=== PATIENT | female | born 1970 | race African-American/Black ===

== ENCOUNTER 2024-10-07 10:34 | Emergency (ER) | payer OTHER ==
--- OUTSIDE RECORDS SUMMARY | 2024-10-07 10:40 | XMS REPORT | Continuity of Care Document ---
Author Name Unknown Address [address] [facility] [place] [address] [facility] [place] Address [address] [facility] [place] [address] Care Team Providers Care Heel Attacher Name Role Phone Tammy Bird Primary Care Physician Shailesh Flores Attending Clinician Shailesh Kaplan Attending Clinician Shailesh Kaplan Admitting Clinician Shadi quiroz Payers Payer Name Policy Type Policy Number Effective Date Expirati on Date Source Allergies, Adverse Reactions, Alerts Allergy Name Allergy Type Status Severity Reaction(s) Onset Date Inactive Date Treating Clinician Comments Source No Known Allergie s Drug Active [facility] Medications Ordered Medication Name Filled Medication Name Start Date Stop Date Current Medication? Ordering Clinician Indication Dosage Frequency Signature (SIG) Comments Components Source ibuprofen 800 mg tablet 4-14 00:00: 00 Yes 1mg Travis Champagne amlodipine 10 mg tablet 2-12 00:00: 00 Yes 1mg Travis Champagne atorvastati n 10 mg tablet 2-12 00:00: 00 Yes 1mg Travis Champagne amlodipine 10 mg tablet 03-02 00:00: 00 Yes 1mg Travis Champagne clarithromy dago 500 mg tablet 03-02 00:00: 00 Yes 1mg Travis Champagne amoxicillin 500 mg tablet 03-02 00:00: 00 Yes 2mg Travis Champagne atorvastati n 10 mg tablet 03-02 00:00: 00 Yes 1mg Travis Champagne omeprazole 20 mg capsule,del ayed release 03-02 00:00: 00 Yes 1mg Travis Champagne bismuth subcit K 140 mg-metronid azole 125 mg-tetracyc line 125 mg cap 03-02 00:00: 00 Yes 3mg Travis Champagne bismuth subcit K 140 mg-metronid azole 125 mg-tetracyc line 125 mg cap 16 00:00: 00 Yes 3mg Travis Champagne atorvastati n 10 mg tablet 02-20 00:00: 00 Yes 1mg Travis Champagne omeprazole 20 mg capsule,del ayed release 02-20 00:00: 00 Yes 1mg Travis Champagne Pylera 140 mg-125 mg-125 mg capsule 02-20 00:00: 00 Yes 3mg Travis Champagne amlodipine 10 mg tablet 02-16 00:00: 00 Yes 1mg Travis Blandonfed DM 2 mg-30 mg-10 mg/5 mL oral syrup 02-16 00:00: 00 Yes 10mg/5 mL Travis Champagne APPLY TO AFFECTED AREAS AT THE MOST 4 TIMES A DAY 06-28 00:00: 00 Yes 1 Travis Champagne TAKE 1 TABLET 3 TIMES DAILY WITH FOOD NEEDED. 06-28 00:00: 00 Yes 800 Travis Champagne TAKE 1 TABLET DAILY. 06-28 00:00: 00 Yes 10 Travis Blandonfed DM 2 mg-30 mg-10 mg/5 mL oral syrup 2020-06 00:00: 00 Yes 75mg/5 mL Travis Champagne atorvastati n 10 mg tablet 10-16 00:00: 00 Yes 1mg Travis Champagne amlodipine 2.5 mg tablet 10-16 00:00: 00 Yes 1mg Travis Champagne diclofenac 1 % topical gel 2018-06 00:00: 00 Yes % Travis Champagne atorvastati n 10 mg tablet 2018-06 00:00: 00 Yes 1mg Travis Champagne amlodipine 2.5 mg tablet 2018-06 00:00: 00 Yes 1mg Travis Champagne amlodipine 2.5 mg tablet 01-04 00:00: 00 Yes 1mg Travis Champagne amlodipine 2.5 mg tablet 12-07 00:00: 00 Yes 1mg Travis Champagne amlodipine 2.5 mg tablet 09-07 00:00: 00 Yes 1mg Travis Champagne loratadine 10 mg tablet 09-07 00:00: 00 Yes 1mg Travis Champagne iron 325 mg (65 mg iron) tablet 09-07 00:00: 00 Yes 1(65 mg iron) Travis Champagne Vitamin B-12 1,000 mcg tablet 09-07 00:00: 00 Yes 1mcg Travis Champagne Immunizations Ordered Immunization Name Filled Immunization Name Date Status Comments Source Pam COVID-19 Vaccine Pam COVID-19 Vaccine 2021-01-08 00:00:00 Completed Travis Champagne Moderna COVID-19 Vaccine Moderna COVID-19 Vaccine 2020-12-09 00:00:00 Completed Travis Champagne Tdap Tdap 2017-09-07 00:00:00 Completed Travis Champagne Vital Signs Vital Name Observation Time Observation Value Comments S ourterra BP Systolic 2024-09-25 14:27:00 126 mm[Hg] Dillan hen Natalia Champagne BP Diastolic 2024-09-25 14:27:00 85 mm[Hg] Thong phen Natalia Champagne Weight Measured 2024-09-25 14:27:00 254.00 pounds Travis Champagne Height Measured 2024-09-25 14:27:00 63.00 inches Travis Champagen Body Temperature 2024-09-25 14:27:00 98.40 degrees Travis Champagne Heart Rate 2024-09-25 14:27:00 100.00 /min Dillan Champagne Respiratory Rate 2024-09-25 14:27:00 Travis Champagne BP Systolic 2024-07-26 14:06:00 176 mm[Hg] Step hen F Ihsan BP Diastolic 2024-07-26 14:06:00 112 mm[Hg] Thong phen Natalia Champagne Weight Measured 2024-07-26 14:06:00 249.60 pounds Travis Champagne Height Measured 2024-07-26 14:06:00 63.00 inches Travis Champagne Body Temperature 2024-07-26 14:06:00 98.70 degrees Travis F Ihsan Heart Rate 2024-07-26 14:06:00 92.00 /min Mallorie en F Ihsan Respiratory Rate 2024-07-26 14:06:00 18.00 /min Travis F Ihsan BP Systolic 2024-03-02 14:44:00 137 mm[Hg] Step hen F Ihsan BP Diastolic 2024-03-02 14:44:00 82 mm[Hg] Thong phen F Ihsan Weight Measured 2024-03-02 14:44:00 249.40 pounds Travis F Ihsan Height Measured 2024-03-02 14:44:00 63.00 inches Travis F Ihsan Body Temperature 2024-03-02 14:44:00 98.30 degrees Travis F Ihsan Heart Rate 2024-03-02 14:44:00 103.00 /min Step hen F Ihsan Respiratory Rate 2024-03-02 14:44:00 19.00 /min Travis F Ihsan Height Measured 2024-02-17 15:01:00 63.00 inches Travis F Ihsan Body Temperature 2024-02-17 15:01:00 98.30 degrees Travis F Ihsan Heart Rate 2024-02-17 15:01:00 96.00 /min Mallorie en F Ihsan Respiratory Rate 2024-02-17 15:01:00 Travis F Ihsan BP Systolic 2024-02-17 15:01:00 156 mm[Hg] Step hen F Ihsan BP Diastolic 2024-02-17 15:01:00 102 mm[Hg] Thong phen F Ihsan Weight Measured 2024-02-17 15:01:00 251.80 pounds Travis F Ihsan BP Systolic 2023-07-01 09:09:00 135 mm[Hg] Step hen F Ihsan BP Diastolic 2023-07-01 09:09:00 79 mm[Hg] Thong phen F Ihsan Weight Measured 2023-07-01 09:09:00 259.40 pounds Travis F Ihsan Height Measured 2023-07-01 09:09:00 63.00 inches Travis F Ihsan Body Temperature 2023-07-01 09:09:00 98.10 degrees Travis F Ihsan Heart Rate 2023-07-01 09:09:00 87.00 /min Mallorie en F Ihsan Respiratory Rate 2023-07-01 09:09:00 18.00 /min Travis F Ihsan BP Systolic 2023-06-28 13:54:00 172 mm[Hg] Step hen F Ihsan BP Diastolic 2023-06-28 13:54:00 95 mm[Hg] Thong phen F Ihsan Weight Measured 2023-06-28 13:54:00 259.40 pounds Travis F Ihsan Height Measured 2023-06-28 13:54:00 63.00 inches Travis F Ihsan Body Temperature 2023-06-28 13:54:00 97.80 degrees Travis F Ihsan Heart Rate 2023-06-28 13:54:00 90.00 /min Mallorie en F Ihsan Respiratory Rate 2023-06-28 13:54:00 18.00 /min Travis F Ihsan BP Systolic 2023-04-03 14:50:00 Step hen F Ihsan BP Diastolic 2023-04-03 14:50:00 Thong phen F Ihsan Weight Measured 2023-04-03 14:50:00 Travis F Ihsan Height Measured 2023-04-03 14:50:00 Travis F Ihsan Body Temperature 2023-04-03 14:50:00 Rtavis F Ihsan Heart Rate 2023-04-03 14:50:00 Mallorie en F Ihsan Respiratory Rate 2023-04-03 14:50:00 Travis F Ihsan BP Systolic 2019-11-23 15:24:00 122 mm[Hg] Step hen F Ihsan BP Diastolic 2019-11-23 15:24:00 83 mm[Hg] Thong phen F Ihsan Weight Measured 2019-11-23 15:24:00 237.00 pounds Travis F Ihsan Height Measured 2019-11-23 15:24:00 63.00 inches Travis F Ihsan Body Temperature 2019-11-23 15:24:00 98.70 degrees Travis F Ihsan Heart Rate 2019-11-23 15:24:00 96.00 /min Mallorie en F Ihsan Respiratory Rate 2019-11-23 15:24:00 16.00 /min Travis F Ihsan BP Systolic 2019-06-29 14:55:00 133 mm[Hg] Step hen F Ihsan BP Diastolic 2019-06-29 14:55:00 78 mm[Hg] Thong phen F Ihsan Weight Measured 2019-06-29 14:55:00 228.80 pounds Travis F Ihsan Height Measured 2019-06-29 14:55:00 63.00 inches Travis F Ihsan Body Temperature 2019-06-29 14:55:00 98.00 degrees Travis F Ihsan Heart Rate 2019-06-29 14:55:00 96.00 /min Mallorie en F Ihsan Respiratory Rate 2019-06-29 14:55:00 16.00 /min Travis F Ihsan BP Systolic 2019-04-21 14:44:00 155 mm[Hg] Step hen F Ihsan BP Diastolic 2019-04-21 14:44:00 98 mm[Hg] Thong phen F Ihsan Weight Measured 2019-04-21 14:44:00 224.00 pounds Travis F Ihsan Height Measured 2019-04-21 14:44:00 63.00 inches Travis F Ihsan Body Temperature 2019-04-21 14:44:00 98.80 degrees Travis F Ihsan Heart Rate 2019-04-21 14:44:00 90.00 /min Mallorie en F Ihsan Respiratory Rate 2019-04-21 14:44:00 17.00 /min Travis F Ihsan BP Systolic 2019-02-14 13:33:00 119 mm[Hg] Step hen F Ihsan BP Diastolic 2019-02-14 13:33:00 76 mm[Hg] Thong phen F Ihsan Weight Measured 2019-02-14 13:33:00 216.00 pounds Travis F Ihsan Height Measured 2019-02-14 13:33:00 63.00 inches Travis F Ihsan Body Temperature 2019-02-14 13:33:00 98.50 degrees Travis F Ihsan Heart Rate 2019-02-14 13:33:00 81.00 /min Amllorie en F Ihsan Respiratory Rate 2019-02-14 13:33:00 18.00 /min Travis F Ihsan BP Systolic 2018-12-27 11:04:00 129 mm[Hg] Step hen F Ihsan BP Diastolic 2018-12-27 11:04:00 85 mm[Hg] Thong phen F Ihsan Weight Measured 2018-12-27 11:04:00 218.40 pounds Travis F Ihsan Height Measured 2018-12-27 11:04:00 63.00 inches Travis F Ihsan Body Temperature 2018-12-27 11:04:00 97.80 degrees Travis F Ihsan Heart Rate 2018-12-27 11:04:00 70.00 /min Mallorie en F Ihsan Respiratory Rate 2018-12-27 11:04:00 16.00 /min Travis Champagne BP Systolic 2017-09-07 17:29:00 152 mm[Hg] Dillan Champagne BP Diastolic 2017-09-07 17:29:00 98 mm[Hg] Thong Champagne Weight Measured 2017-09-07 17:29:00 Travis Champagne Height Measured 2017-09-07 17:29:00 Travis Champagne Body Temperature 2017-09-07 17:29:00 Travis Champagne Heart Rate 2017-09-07 17:29:00 Mallorie Champagne Respiratory Rate 2017-09-07 17:29:00 Travis Champagne Encounters Start Date/Time End Date/Time Encounter Type Admission Type Attending [facility] Care Facility Care Department Encounter ID Source 2019-09-12 08:14:00 Inpatient Shailesh Flores Dom[facility] CRD [id number] [facility] 2024-09-25 14:20:39 2024-09-25 14:20:39 Outpatient [facility] [id number] Travis Champagne 2024-09-25 00:00:00 2024-09-25 00:00:00 Outpatient Visit [facility] [id number] Travis Champagne 2024-07-26 13:58:39 2024-07-26 13:58:39 Outpatient [facility] [id number] Travis Champagne 2024-07-26 00:00:00 2024-07-26 00:00:00 Outpatient Visit [facility] [id number] Travis Champagne 2024-03-02 14:40:06 2024-03-02 14:40:06 Outpatient [facility] [id number] Travis Champagne 2024-03-02 00:00:00 2024-03-02 00:00:00 Outpatient Visit [facility] [id number] Travis Champagne 2024-02-18 07:54:03 2024-02-18 07:54:03 Outpatient [facility] [id number] Travis Champagne 2024-02-17 14:55:12 2024-02-17 14:55:12 Outpatient [facility] [id number] Travis Champagne 2024-02-17 00:00:00 2024-02-17 00:00:00 Outpatient Visit [facility] [id number] Travis Champagne 2023-07-07 10:48:55 2023-07-07 10:48:55 Outpatient [facility] [id number] Travis Champagne 2023-07-01 09:01:29 2023-07-01 09:01:29 Outpatient [facility] [id number] Travis Champagne 2023-06-28 13:49:03 2023-06-28 13:49:03 Outpatient [facility] [id number] Travis Champagne Results Test Description Test Time Test Comments Results Result Co mments Source HEMOGLOBIN [id number] 00:00:00* Test Item Value Reference Range Interpretation Comme nts HEMOGLOBIN A1c (test code = 59486) 5.6 % Travis ChampagneHEMOGLOBIN [id number] 00:00:00* Test Item Value Reference Range Interpretation Comme nts HEMOGLOBIN A1c (test code = 33093) 5.6 % Travis ChampagneHEMOGLOBIN [id number] 00:00:00* Test Item Value Reference Range Interpretation Comme nts HEMOGLOBIN A1c (test code = 39235) 5.6 % Travis Fisher [place]. PYLORI (BREATH)2024-02-19 12:34:26* Test Item Value Reference Range Interpretation Comme nts H. PYLORI (BREATH) (test code = 22522) POSITIVE NEGATIVE A UNLESS OTHER GUAMAN INDICATED, ALL TESTING PERFORMED AT [facility] [address] [place] [id number] [employer] ADMINISTRATOR: MING GARNETT M.D. CLIA NUMBER [id number] [place]. [id number] CBC W/AUTO DIFF WITH [id number] 11:02:02* Test Item Value Reference Range Interpretation Comme nts WBC (test code = 1001) 5.4 K/UL 3.5-11.0 RBC (test code = 1002) 4.31 M/UL 3.80-5.40 HEMOGLOBIN (test code = 1003) 12.6 G/DL 11.5-15.5 HEMATOCRIT (test code = 1004) 40.2 % 34.0-45.0 MCV (test code = 1005) 93.3 fL 80.0-99.0 MCH (test code = 1006) 29.2 PG 25.0-33.0 MCHC (test code = 1007) 31.3 G/DL 31.0-36.0 RDW (test code = 1038) 16.7 % 11.5-15.0 H NEUTROPHILS (test code = 1008) 55.4 % LYMPHOCYTES (test code = 1010) 33.3 % MONOCYTES (test code = 1011) 8.3 % EOSINOPHILS (test code = 1012) 2.0 % BASOPHILS (test code = 1013) 0.6 % IMMATURE GRANULOCYTES (test code = 1036) 0.4 % NUCLEATED RBCS (test code = 1065) 0.0 /100 WBC'S See_Comment [Automated messa ge] The system which generated this result transmitted reference range: 0.0. The reference range was not used to interpret this result as normal/abnormal. PLATELET COUNT (test code = 1015) 318 K/UL 130-400 ABSOLUTE NEUTROPHILS (test code = 1066) 2.99 K/UL 1.50-7.50 ABSOLUTE LYMPHOCYTES (test code = 1067) 1.80 K/UL 1.00-4.00 ABSOLUTE MONOCYTES (test code = 1068) 0.45 K/UL 0.20-1.00 ABSOLUTE EOSINOPHILS (test code = 1040) 0.11 K/UL 0.00-0.50 ABSOLUTE BASOPHILS (test code = 1069) 0.03 K/UL 0.00-0.20 ABS IMMATURE GRANULOCYTES (test code = 1020) 0.02 K/UL 0.00-0.10 ABS NUCLEATED RBCS (test code = 17058) 0.00 K/UL 0.00-0.11 COMPREHENSIVE METABOLIC [id number] 05:51:58* Test Item Value Reference Range Interpretation Comme nts GLUCOSE (test code = 2217) 99 MG/DL 70-99 BUN (test code = 2208) 9 MG/DL 6-20 CREATININE (test code = 2214) 0.78 MG/DL 0.60-1.30 eGFR (2020 CKD-EPI) (test co de = 89423) 91 ML/MIN/1.73 >60 CALC BUN/CREAT (test code = 2234) 12 RATIO 6-28 SODIUM (test code = 223) 141 MEQ/L 133-146 POTASSIUM (test code = 8) 4.3 MEQ/L 3.5-5.4 CHLORIDE (test code = 2214) 105 MEQ/L 95-107 CARBON DIOXIDE (test code = 2206) 24 MEQ/L 19-31 CALCIUM (test code = 2208) 9.8 MG/DL 8.5-10.5 PROTEIN, TOTAL (test code = 2228) 6.8 G/DL 6.1-8.3 ALBUMIN (test code = 2200) 4.3 G/DL 3.5-5.2 CALC GLOBULIN (test code = 2240) 2.5 G/DL 1.9-3.7 CALC A/G RATIO (test code = 2233) 1.7 RATIO 1.0-2.6 BILIRUBIN, TOTAL (test code = 2206) 0.3 MG/DL <=1.2 ALKALINE PHOSPHATASE (test code = 2203) 85 U/L 40-133 AST (test code = 221) 24 U/L 9-40 ALT (test code = 2219) 20 U/L 5-40 LIPID [id number] 05:51:58* Test Item Value Reference Range Interpretation Comme nts CHOLESTEROL (test code = 2210) 219 MG/DL <200 H TRIGLYCERIDES (test code = 2232) 144 MG/DL <150 HDL CHOLESTEROL (test code = 2220) 52 MG/DL >39 CALC LDL CHOL (test code = 2237) 140 MG/DL <100 H NOTE: CALCULATED LDL IS BASED ON KAMRYN-MARTINEZ METHOD WHICHINCLUDES ADJUSTABLE TRIGLYCERIDE:VLDL CHOLESTEROL RATIO.THIS FACTOR VARIES BY MEASURED TRIGLYCERIDE AND NON-HDLCHOLESTEROL CONCENTRATIONS WITH INCREASED CALCULATED LDL SEENIN HIGHER TRIGLYCERIDE OR LOWER NON-HDL SPECIMENS. FOR MOREINFORMATION, SEE CLIENT ANNOUNCEMENT AT [email or web address] RISK RATIO LDL/HDL (test code = 2238) 2.69 RATIO <3.22 COMPREHENSIVE METABOLIC [id number] 00:00:00* Test Item Value Reference Range Interpretation Comme nts GLUCOSE (test code = 2217) 99 MG/DL BUN (test code = 2208) 9 MG/DL CREATININE (test code = 2214) 0.78 MG/DL eGFR (2020 CKD-EPI) (test co de = 38876) 91 ML/MIN/1.73 CALC BUN/CREAT (test code = 2235) 12 RATIO SODIUM (test code = 2231) 141 MEQ/L POTASSIUM (test code = 2228) 4.3 MEQ/L CHLORIDE (test code = 2215) 105 MEQ/L CARBON DIOXIDE (test code = 2206) 24 MEQ/L CALCIUM (test code = 2209) 9.8 MG/DL PROTEIN, TOTAL (test code = 2229) 6.8 G/DL ALBUMIN (test code = 2201) 4.3 G/DL CALC GLOBULIN (test code = 2240) 2.5 G/DL CALC A/G RATIO (test code = 2234) 1.7 RATIO BILIRUBIN, TOTAL (test code = 2207) 0.3 MG/DL ALKALINE PHOSPHATASE (test code = 2204) 85 U/L AST (test code = 2218) 24 U/L ALT (test code = 2219) 20 U/L Travis ChampagneH. PYLORI (BREATH)2024-02-19 00:00:00* Test Item Value Reference Range Interpretation Comme nts H. PYLORI (BREATH) (test cod e = 92777) POSITIVE Travis ChampagneLIPID [id number] 00:00:00* Test Item Value Reference Range Interpretation Comme nts CHOLESTEROL (test code = 2210) 219 MG/DL TRIGLYCERIDES (test code = 2232) 144 MG/DL HDL CHOLESTEROL (test code = 2220) 52 MG/DL CALC LDL CHOL (test code = 2237) 140 MG/DL RISK RATIO LDL/HDL (test cod e = 2238) 2.69 RATIO Travis ChampagneCBC W/AUTO [id number] 00:00:00* Test Item Value Reference Range Interpretation Comme nts WBC (test code = 1001) 5.4 K/UL RBC (test code = 1002) 4.31 M/UL HEMOGLOBIN (test code = 1003) 12.6 G/DL HEMATOCRIT (test code = 1004) 40.2 % MCV (test code = 1005) 93.3 fL MCH (test code = 1006) 29.2 PG MCHC (test code = 1007) 31.3 G/DL RDW (test code = 1038) 16.7 % NEUTROPHILS (test code = 1008) 55.4 % LYMPHOCYTES (test code = 1010) 33.3 % MONOCYTES (test code = 1011) 8.3 % EOSINOPHILS (test code = 1012) 2.0 % BASOPHILS (test code = 1013) 0.6 % IMMATURE GRANULOCYTES (test code = 1036) 0.4 % NUCLEATED RBCS (test code = 1065) 0.0 /100WBC'S PLATELET COUNT (test code = 1015) 318 K/UL ABSOLUTE NEUTROPHILS (test c ode = 1066) 2.99 K/UL ABSOLUTE LYMPHOCYTES (test c ode = 1067) 1.80 K/UL ABSOLUTE MONOCYTES (test cod e = 1068) 0.45 K/UL ABSOLUTE EOSINOPHILS (test c ode = 1040) 0.11 K/UL ABSOLUTE BASOPHILS (test cod e = 1069) 0.03 K/UL ABS IMMATURE GRANULOCYTES (t est code = 1020) 0.02 K/UL ABS NUCLEATED RBCS (test cod e = 69448) 0.00 K/UL Travis ChampagneH. PYLORI (BREATH)2024-02-19 00:00:00* Test Item Value Reference Range Interpretation Comme nts H. PYLORI (BREATH) (test cod e = 27487) POSITIVE Travis Fisher IhsanCOMPREHENSIVE METABOLIC [id number] 00:00:00* Test Item Value Reference Range Interpretation Comme nts GLUCOSE (test code = 2217) 99 MG/DL BUN (test code = 2208) 9 MG/DL CREATININE (test code = 2214) 0.78 MG/DL eGFR (2020 CKD-EPI) (test co de = 04487) 91 ML/MIN/1.73 CALC BUN/CREAT (test code = 2235) 12 RATIO SODIUM (test code = 2231) 141 MEQ/L POTASSIUM (test code = 2228) 4.3 MEQ/L CHLORIDE (test code = 2215) 105 MEQ/L CARBON DIOXIDE (test code = 2206) 24 MEQ/L CALCIUM (test code = 2209) 9.8 MG/DL PROTEIN, TOTAL (test code = 2229) 6.8 G/DL ALBUMIN (test code = 2201) 4.3 G/DL CALC GLOBULIN (test code = 2240) 2.5 G/DL CALC A/G RATIO (test code = 2234) 1.7 RATIO BILIRUBIN, TOTAL (test code = 2207) 0.3 MG/DL ALKALINE PHOSPHATASE (test code = 2204) 85 U/L AST (test code = 2218) 24 U/L ALT (test code = 2219) 20 U/L Travis ChampagneLIPID [id number] 00:00:00* Test Item Value Reference Range Interpretation Comme nts CHOLESTEROL (test code = 2210) 219 MG/DL TRIGLYCERIDES (test code = 2232) 144 MG/DL HDL CHOLESTEROL (test code = 2220) 52 MG/DL CALC LDL CHOL (test code = 2237) 140 MG/DL RISK RATIO LDL/HDL (test cod e = 2238) 2.69 RATIO Travis ChampagneCBC W/AUTO [id number] 00:00:00* Test Item Value Reference Range Interpretation Comme nts WBC (test code = 1001) 5.4 K/UL RBC (test code = 1002) 4.31 M/UL HEMOGLOBIN (test code = 1003) 12.6 G/DL HEMATOCRIT (test code = 1004) 40.2 % MCV (test code = 1005) 93.3 fL MCH (test code = 1006) 29.2 PG MCHC (test code = 1007) 31.3 G/DL RDW (test code = 1038) 16.7 % NEUTROPHILS (test code = 1008) 55.4 % LYMPHOCYTES (test code = 1010) 33.3 % MONOCYTES (test code = 1011) 8.3 % EOSINOPHILS (test code = 1012) 2.0 % BASOPHILS (test code = 1013) 0.6 % IMMATURE GRANULOCYTES (test code = 1036) 0.4 % NUCLEATED RBCS (test code = 1065) 0.0 /100WBC'S PLATELET COUNT (test code = 1015) 318 K/UL ABSOLUTE NEUTROPHILS (test c ode = 1066) 2.99 K/UL ABSOLUTE LYMPHOCYTES (test c ode = 1067) 1.80 K/UL ABSOLUTE MONOCYTES (test cod e = 1068) 0.45 K/UL ABSOLUTE EOSINOPHILS (test c ode = 1040) 0.11 K/UL ABSOLUTE BASOPHILS (test cod e = 1069) 0.03 K/UL ABS IMMATURE GRANULOCYTES (t est code = 1020) 0.02 K/UL ABS NUCLEATED RBCS (test cod e = 33791) 0.00 K/UL Travis ChampagneH. PYLORI (BREATH)2024-02-19 00:00:00* Test Item Value Reference Range Interpretation Comme nts H. PYLORI (BREATH) (test cod e = 09502) POSITIVE Travis ChampagneCOMPREHENSIVE METABOLIC [id number] 00:00:00* Test Item Value Reference Range Interpretation Comme nts GLUCOSE (test code = 2217) 99 MG/DL BUN (test code = 2208) 9 MG/DL CREATININE (test code = 2214) 0.78 MG/DL eGFR (2020 CKD-EPI) (test co de = 48685) 91 ML/MIN/1.73 CALC BUN/CREAT (test code = 2235) 12 RATIO SODIUM (test code = 2231) 141 MEQ/L POTASSIUM (test code = 2228) 4.3 MEQ/L CHLORIDE (test code = 2215) 105 MEQ/L CARBON DIOXIDE (test code = 2206) 24 MEQ/L CALCIUM (test code = 2209) 9.8 MG/DL PROTEIN, TOTAL (test code = 2229) 6.8 G/DL ALBUMIN (test code = 2201) 4.3 G/DL CALC GLOBULIN (test code = 2240) 2.5 G/DL CALC A/G RATIO (test code = 2234) 1.7 RATIO BILIRUBIN, TOTAL (test code = 2207) 0.3 MG/DL ALKALINE PHOSPHATASE (test code = 2204) 85 U/L AST (test code = 2218) 24 U/L ALT (test code = 2219) 20 U/L Travis ChampagneLIPID [id number] 00:00:00* Test Item Value Reference Range Interpretation Comme nts CHOLESTEROL (test code = 2210) 219 MG/DL TRIGLYCERIDES (test code = 2232) 144 MG/DL HDL CHOLESTEROL (test code = 2220) 52 MG/DL CALC LDL CHOL (test code = 2237) 140 MG/DL RISK RATIO LDL/HDL (test cod e = 2238) 2.69 RATIO Travis ChampagneCBC W/AUTO [id number] 00:00:00* Test Item Value Reference Range Interpretation Comme nts WBC (test code = 1001) 5.4 K/UL RBC (test code = 1002) 4.31 M/UL HEMOGLOBIN (test code = 1003) 12.6 G/DL HEMATOCRIT (test code = 1004) 40.2 % MCV (test code = 1005) 93.3 fL MCH (test code = 1006) 29.2 PG MCHC (test code = 1007) 31.3 G/DL RDW (test code = 1038) 16.7 % NEUTROPHILS (test code = 1008) 55.4 % LYMPHOCYTES (test code = 1010) 33.3 % MONOCYTES (test code = 1011) 8.3 % EOSINOPHILS (test code = 1012) 2.0 % BASOPHILS (test code = 1013) 0.6 % IMMATURE GRANULOCYTES (test code = 1036) 0.4 % NUCLEATED RBCS (test code = 1065) 0.0 /100WBC'S PLATELET COUNT (test code = 1015) 318 K/UL ABSOLUTE NEUTROPHILS (test c ode = 1066) 2.99 K/UL ABSOLUTE LYMPHOCYTES (test c ode = 1067) 1.80 K/UL ABSOLUTE MONOCYTES (test cod e = 1068) 0.45 K/UL ABSOLUTE EOSINOPHILS (test c ode = 1040) 0.11 K/UL ABSOLUTE BASOPHILS (test cod e = 1069) 0.03 K/UL ABS IMMATURE GRANULOCYTES (t est code = 1020) 0.02 K/UL ABS NUCLEATED RBCS (test cod e = 36994) 0.00 K/UL Travis Fisher AustinCOMPREHENSIVE METABOLIC [id number] 06:02:05* Test Item Value Reference Range Interpretation Comme nts GLUCOSE (test code = 2217) 91 MG/DL 70-99 BUN (test code = 2208) 15 MG/DL 6-20 CREATININE (test code = 2214) 0.74 MG/DL 0.60-1.30 eGFR (2020 CKD-EPI) (test co de = 11189) 97 ML/MIN/1.73 >60 CALC BUN/CREAT (test code = 2235) 20 RATIO 6-28 SODIUM (test code = 2231) 140 MEQ/L 133-146 POTASSIUM (test code = 2228) 4.5 MEQ/L 3.5-5.4 CHLORIDE (test code = 2215) 106 MEQ/L 95-107 CARBON DIOXIDE (test code = 2205) 21 MEQ/L 19-31 CALCIUM (test code = 2208) 9.8 MG/DL 8.5-10.5 PROTEIN, TOTAL (test code = 2228) 6.9 G/DL 6.1-8.3 ALBUMIN (test code = 2200) 4.3 G/DL 3.5-5.2 CALC GLOBULIN (test code = 2239) 2.6 G/DL 1.9-3.7 CALC A/G RATIO (test code = 2233) 1.7 RATIO 1.0-2.6 BILIRUBIN, TOTAL (test code = 2206) 0.4 MG/DL <=1.2 ALKALINE PHOSPHATASE (test code = 2203) 73 U/L 40-133 AST (test code = 2217) 19 U/L 9-40 ALT (test code = 2218) 16 U/L 5-40 HEMOGLOBIN [id number] 03:25:28* Test Item Value Reference Range Interpretation Comme nts HEMOGLOBIN A1c (test code = 19185) 5.4 % 4.2-5.6 CBC W/AUTO DIFF WITH [id number] 02:46:38* Test Item Value Reference Range Interpretation Comme nts WBC (test code = 1001) 4.2 K/UL 3.5-11.0 RBC (test code = 1002) 4.23 M/UL 3.80-5.40 HEMOGLOBIN (test code = 1003) 12.3 G/DL 11.5-15.5 HEMATOCRIT (test code = 1004) 38.1 % 34.0-45.0 MCV (test code = 1005) 90.1 fL 80.0-99.0 MCH (test code = 1006) 29.1 PG 25.0-33.0 MCHC (test code = 1007) 32.3 G/DL 31.0-36.0 RDW (test code = 1038) 14.5 % 11.5-15.0 NEUTROPHILS (test code = 1008) 45.3 % LYMPHOCYTES (test code = 1010) 38.2 % MONOCYTES (test code = 1011) 11.2 % EOSINOPHILS (test code = 1012) 3.6 % BASOPHILS (test code = 1013) 1.2 % IMMATURE GRANULOCYTES (test code = 1036) 0.5 % NUCLEATED RBCS (test code = 1065) 0.0 /100 WBC'S See_Comment [Automated message] The system which generated this result transmitted reference range: 0.0. The reference range was not used to interpret this result as normal/abnormal. PLATELET COUNT (test code = 1015) 302 K/UL 130-400 ABSOLUTE NEUTROPHILS (test code = 1066) 1.90 K/UL 1.50-7.50 ABSOLUTE LYMPHOCYTES (test code = 1067) 1.60 K/UL 1.00-4.00 ABSOLUTE MONOCYTES (test code = 1068) 0.47 K/UL 0.20-1.00 ABSOLUTE EOSINOPHILS (test code = 1040) 0.15 K/UL 0.00-0.50 ABSOLUTE BASOPHILS (test code = 1069) 0.05 K/UL 0.00-0.20 ABS IMMATURE GRANULOCYTES (test code = 1020) 0.02 K/UL 0.00-0.10 ABS NUCLEATED RBCS (test code = 24019) 0.00 K/UL 0.00-0.11 UNLESS OTHER GUAMAN INDICATED, ALL TESTING PERFORMED AT [facility]ICAL [facility] [address] [place] [address] [employer] ADMINISTRATOR: MING GARNETT M.D. CLIA NUMBER [id number] [facility] [place]. [id number] COMPREHENSIVE METABOLIC [id number] 00:00:00* Test Item Value Reference Range Interpretation Comme nts GLUCOSE (test code = 2217) 91 MG/DL BUN (test code = 2208) 15 MG/DL CREATININE (test code = 2214) 0.74 MG/DL eGFR (2020 CKD-EPI) (test co de = 87162) 97 ML/MIN/1.73 CALC BUN/CREAT (test code = 2235) 20 RATIO SODIUM (test code = 2231) 140 MEQ/L POTASSIUM (test code = 2228) 4.5 MEQ/L CHLORIDE (test code = 2215) 106 MEQ/L CARBON DIOXIDE (test code = 2206) 21 MEQ/L CALCIUM (test code = 2209) 9.8 MG/DL PROTEIN, TOTAL (test code = 2229) 6.9 G/DL ALBUMIN (test code = 2201) 4.3 G/DL CALC GLOBULIN (test code = 2240) 2.6 G/DL CALC A/G RATIO (test code = 2234) 1.7 RATIO BILIRUBIN, TOTAL (test code = 2207) 0.4 MG/DL ALKALINE PHOSPHATASE (test code = 2204) 73 U/L AST (test code = 2218) 19 U/L ALT (test code = 2219) 16 U/L Travis ChampagneHEMOGLOBIN [id number] 00:00:00* Test Item Value Reference Range Interpretation Comme nts HEMOGLOBIN A1c (test code = 84430) 5.4 % Travis ChampagneCBC W/AUTO [id number] 00:00:00* Test Item Value Reference Range Interpretation Comme nts WBC (test code = 1001) 4.2 K/UL RBC (test code = 1002) 4.23 M/UL HEMOGLOBIN (test code = 1003) 12.3 G/DL HEMATOCRIT (test code = 1004) 38.1 % MCV (test code = 1005) 90.1 fL MCH (test code = 1006) 29.1 PG MCHC (test code = 1007) 32.3 G/DL RDW (test code = 1038) 14.5 % NEUTROPHILS (test code = 1008) 45.3 % LYMPHOCYTES (test code = 1010) 38.2 % MONOCYTES (test code = 1011) 11.2 % EOSINOPHILS (test code = 1012) 3.6 % BASOPHILS (test code = 1013) 1.2 % IMMATURE GRANULOCYTES (test code = 1036) 0.5 % NUCLEATED RBCS (test code = 1065) 0.0 /100WBC'S PLATELET COUNT (test code = 1015) 302 K/UL ABSOLUTE NEUTROPHILS (test c ode = 1066) 1.90 K/UL ABSOLUTE LYMPHOCYTES (test c ode = 1067) 1.60 K/UL ABSOLUTE MONOCYTES (test cod e = 1068) 0.47 K/UL ABSOLUTE EOSINOPHILS (test c ode = 1040) 0.15 K/UL ABSOLUTE BASOPHILS (test cod e = 1069) 0.05 K/UL ABS IMMATURE GRANULOCYTES (t est code = 1020) 0.02 K/UL ABS NUCLEATED RBCS (test cod e = 04111) 0.00 K/UL Travis ChampagneCOMPREHENSIVE METABOLIC [id number] 00:00:00* Test Item Value Reference Range Interpretation Comme nts GLUCOSE (test code = 2217) 91 MG/DL BUN (test code = 2208) 15 MG/DL CREATININE (test code = 2214) 0.74 MG/DL eGFR (2020 CKD-EPI) (test co de = 50809) 97 ML/MIN/1.73 CALC BUN/CREAT (test code = 2235) 20 RATIO SODIUM (test code = 2231) 140 MEQ/L POTASSIUM (test code = 2228) 4.5 MEQ/L CHLORIDE (test code = 2215) 106 MEQ/L CARBON DIOXIDE (test code = 2206) 21 MEQ/L CALCIUM (test code = 2209) 9.8 MG/DL PROTEIN, TOTAL (test code = 2229) 6.9 G/DL ALBUMIN (test code = 2201) 4.3 G/DL CALC GLOBULIN (test code = 2240) 2.6 G/DL CALC A/G RATIO (test code = 2234) 1.7 RATIO BILIRUBIN, TOTAL (test code = 2207) 0.4 MG/DL ALKALINE PHOSPHATASE (test code = 2204) 73 U/L AST (test code = 2218) 19 U/L ALT (test code = 2219) 16 U/L Travis ChampagneHEMOGLOBIN [id number] 00:00:00* Test Item Value Reference Range Interpretation Comme nts HEMOGLOBIN A1c (test code = 46495) 5.4 % Travis ChampagneCBC W/AUTO [id number] 00:00:00* Test Item Value Reference Range Interpretation Comme nts WBC (test code = 1001) 4.2 K/UL RBC (test code = 1002) 4.23 M/UL HEMOGLOBIN (test code = 1003) 12.3 G/DL HEMATOCRIT (test code = 1004) 38.1 % MCV (test code = 1005) 90.1 fL MCH (test code = 1006) 29.1 PG MCHC (test code = 1007) 32.3 G/DL RDW (test code = 1038) 14.5 % NEUTROPHILS (test code = 1008) 45.3 % LYMPHOCYTES (test code = 1010) 38.2 % MONOCYTES (test code = 1011) 11.2 % EOSINOPHILS (test code = 1012) 3.6 % BASOPHILS (test code = 1013) 1.2 % IMMATURE GRANULOCYTES (test code = 1036) 0.5 % NUCLEATED RBCS (test code = 1065) 0.0 /100WBC'S PLATELET COUNT (test code = 1015) 302 K/UL ABSOLUTE NEUTROPHILS (test c ode = 1066) 1.90 K/UL ABSOLUTE LYMPHOCYTES (test c ode = 1067) 1.60 K/UL ABSOLUTE MONOCYTES (test cod e = 1068) 0.47 K/UL ABSOLUTE EOSINOPHILS (test c ode = 1040) 0.15 K/UL ABSOLUTE BASOPHILS (test cod e = 1069) 0.05 K/UL ABS IMMATURE GRANULOCYTES (t est code = 1020) 0.02 K/UL ABS NUCLEATED RBCS (test cod e = 51335) 0.00 K/UL Travis ChampagneCOMPREHENSIVE METABOLIC [id number] 00:00:00* Test Item Value Reference Range Interpretation Comme nts GLUCOSE (test code = 2217) 91 MG/DL BUN (test code = 2208) 15 MG/DL CREATININE (test code = 2214) 0.74 MG/DL eGFR (2020 CKD-EPI) (test co de = 61359) 97 ML/MIN/1.73 CALC BUN/CREAT (test code = 2235) 20 RATIO SODIUM (test code = 2231) 140 MEQ/L POTASSIUM (test code = 2228) 4.5 MEQ/L CHLORIDE (test code = 2215) 106 MEQ/L CARBON DIOXIDE (test code = 2206) 21 MEQ/L CALCIUM (test code = 2209) 9.8 MG/DL PROTEIN, TOTAL (test code = 2229) 6.9 G/DL ALBUMIN (test code = 2201) 4.3 G/DL CALC GLOBULIN (test code = 2240) 2.6 G/DL CALC A/G RATIO (test code = 2234) 1.7 RATIO BILIRUBIN, TOTAL (test code = 2207) 0.4 MG/DL ALKALINE PHOSPHATASE (test code = 2204) 73 U/L AST (test code = 2218) 19 U/L ALT (test code = 2219) 16 U/L Travis ChampagneHEMOGLOBIN [id number] 00:00:00* Test Item Value Reference Range Interpretation Comme nts HEMOGLOBIN A1c (test code = 08397) 5.4 % Travis Fisher IhsanCBC W/AUTO [id number] 00:00:00* Test Item Value Reference Range Interpretation Comme nts WBC (test code = 1001) 4.2 K/UL RBC (test code = 1002) 4.23 M/UL HEMOGLOBIN (test code = 1003) 12.3 G/DL HEMATOCRIT (test code = 1004) 38.1 % MCV (test code = 1005) 90.1 fL MCH (test code = 1006) 29.1 PG MCHC (test code = 1007) 32.3 G/DL RDW (test code = 1038) 14.5 % NEUTROPHILS (test code = 1008) 45.3 % LYMPHOCYTES (test code = 1010) 38.2 % MONOCYTES (test code = 1011) 11.2 % EOSINOPHILS (test code = 1012) 3.6 % BASOPHILS (test code = 1013) 1.2 % IMMATURE GRANULOCYTES (test code = 1036) 0.5 % NUCLEATED RBCS (test code = 1065) 0.0 /100WBC'S PLATELET COUNT (test code = 1015) 302 K/UL ABSOLUTE NEUTROPHILS (test c ode = 1066) 1.90 K/UL ABSOLUTE LYMPHOCYTES (test c ode = 1067) 1.60 K/UL ABSOLUTE MONOCYTES (test cod e = 1068) 0.47 K/UL ABSOLUTE EOSINOPHILS (test c ode = 1040) 0.15 K/UL ABSOLUTE BASOPHILS (test cod e = 1069) 0.05 K/UL ABS IMMATURE GRANULOCYTES (t est code = 1020) 0.02 K/UL ABS NUCLEATED RBCS (test cod e = 96644) 0.00 K/UL Travis Fisher AustinCOMPREHENSIVE METABOLIC [id number] 00:00:00* Test Item Value Reference Range Interpretation Comme nts GLUCOSE (test code = 2217) 91 MG/DL BUN (test code = 2208) 15 MG/DL CREATININE (test code = 2214) 0.74 MG/DL eGFR (2020 CKD-EPI) (test co de = 18808) 97 ML/MIN/1.73 CALC BUN/CREAT (test code = 2235) 20 RATIO SODIUM (test code = 2231) 140 MEQ/L POTASSIUM (test code = 2228) 4.5 MEQ/L CHLORIDE (test code = 2215) 106 MEQ/L CARBON DIOXIDE (test code = 2206) 21 MEQ/L CALCIUM (test code = 2209) 9.8 MG/DL PROTEIN, TOTAL (test code = 2229) 6.9 G/DL ALBUMIN (test code = 2201) 4.3 G/DL CALC GLOBULIN (test code = 2240) 2.6 G/DL CALC A/G RATIO (test code = 2234) 1.7 RATIO BILIRUBIN, TOTAL (test code = 2207) 0.4 MG/DL ALKALINE PHOSPHATASE (test code = 2204) 73 U/L AST (test code = 2218) 19 U/L ALT (test code = 2219) 16 U/L Travis ChampagneHEMOGLOBIN [id number] 00:00:00* Test Item Value Reference Range Interpretation Comme nts HEMOGLOBIN A1c (test code = 43530) 5.4 % Travis ChampagneCBC W/AUTO [id number] 00:00:00* Test Item Value Reference Range Interpretation Comme nts WBC (test code = 1001) 4.2 K/UL RBC (test code = 1002) 4.23 M/UL HEMOGLOBIN (test code = 1003) 12.3 G/DL HEMATOCRIT (test code = 1004) 38.1 % MCV (test code = 1005) 90.1 fL MCH (test code = 1006) 29.1 PG MCHC (test code = 1007) 32.3 G/DL RDW (test code = 1038) 14.5 % NEUTROPHILS (test code = 1008) 45.3 % LYMPHOCYTES (test code = 1010) 38.2 % MONOCYTES (test code = 1011) 11.2 % EOSINOPHILS (test code = 1012) 3.6 % BASOPHILS (test code = 1013) 1.2 % IMMATURE GRANULOCYTES (test code = 1036) 0.5 % NUCLEATED RBCS (test code = 1065) 0.0 /100WBC'S PLATELET COUNT (test code = 1015) 302 K/UL ABSOLUTE NEUTROPHILS (test c ode = 1066) 1.90 K/UL ABSOLUTE LYMPHOCYTES (test c ode = 1067) 1.60 K/UL ABSOLUTE MONOCYTES (test cod e = 1068) 0.47 K/UL ABSOLUTE EOSINOPHILS (test c ode = 1040) 0.15 K/UL ABSOLUTE BASOPHILS (test cod e = 1069) 0.05 K/UL ABS IMMATURE GRANULOCYTES (t est code = 1020) 0.02 K/UL ABS NUCLEATED RBCS (test cod e = 80388) 0.00 K/UL Travis ChampagneLIPID [id number] 00:00:00* Test Item Value Reference Range Interpretation Comme nts CHOLESTEROL (test code = 2210) 166 MG/DL TRIGLYCERIDES (test code = 2232) 51 MG/DL HDL CHOLESTEROL (test code = 2220) 76 MG/DL CALC LDL CHOL (test code = 2237) 80 MG/DL RISK RATIO LDL/HDL (test cod e = 2238) 1.05 RATIO Travis ChampagneCBC W/AUTO [id number] 00:00:00* Test Item Value Reference Range Interpretation Comme nts WBC (test code = 1001) 5.1 K/UL RBC (test code = 1002) 3.91 M/UL HEMOGLOBIN (test code = 1003) 10.6 G/DL HEMATOCRIT (test code = 1004) 33.1 % MCV (test code = 1005) 84.7 fL MCH (test code = 1006) 27.1 PG MCHC (test code = 1007) 32.0 G/DL RDW (test code = 1038) 15.3 % NEUTROPHILS (test code = 1008) 39.7 % LYMPHOCYTES (test code = 1010) 44.8 % MONOCYTES (test code = 1011) 10.2 % EOSINOPHILS (test code = 1012) 4.3 % BASOPHILS (test code = 1013) 1.0 % PLATELET COUNT (test code = 1015) 379 K/UL Travis ChampagneLIPID [id number] 00:00:00* Test Item Value Reference Range Interpretation Comme nts CHOLESTEROL (test code = 2210) 166 MG/DL TRIGLYCERIDES (test code = 2232) 51 MG/DL HDL CHOLESTEROL (test code = 2220) 76 MG/DL CALC LDL CHOL (test code = 2237) 80 MG/DL RISK RATIO LDL/HDL (test cod e = 2238) 1.05 RATIO Travis ChampagneCBC W/AUTO [id number] 00:00:00* Test Item Value Reference Range Interpretation Comme nts WBC (test code = 1001) 5.1 K/UL RBC (test code = 1002) 3.91 M/UL HEMOGLOBIN (test code = 1003) 10.6 G/DL HEMATOCRIT (test code = 1004) 33.1 % MCV (test code = 1005) 84.7 fL MCH (test code = 1006) 27.1 PG MCHC (test code = 1007) 32.0 G/DL RDW (test code = 1038) 15.3 % NEUTROPHILS (test code = 1008) 39.7 % LYMPHOCYTES (test code = 1010) 44.8 % MONOCYTES (test code = 1011) 10.2 % EOSINOPHILS (test code = 1012) 4.3 % BASOPHILS (test code = 1013) 1.0 % PLATELET COUNT (test code = 1015) 379 K/UL Travis Fisher AustinLIPID [id number] 00:00:00* Test Item Value Reference Range Interpretation Comme nts CHOLESTEROL (test code = 2210) 166 MG/DL TRIGLYCERIDES (test code = 2232) 51 MG/DL HDL CHOLESTEROL (test code = 2220) 76 MG/DL CALC LDL CHOL (test code = 2237) 80 MG/DL RISK RATIO LDL/HDL (test cod e = 2238) 1.05 RATIO Travis ChampagneCBC W/AUTO [id number] 00:00:00* Test Item Value Reference Range Interpretation Comme nts WBC (test code = 1001) 5.1 K/UL RBC (test code = 1002) 3.91 M/UL HEMOGLOBIN (test code = 1003) 10.6 G/DL HEMATOCRIT (test code = 1004) 33.1 % MCV (test code = 1005) 84.7 fL MCH (test code = 1006) 27.1 PG MCHC (test code = 1007) 32.0 G/DL RDW (test code = 1038) 15.3 % NEUTROPHILS (test code = 1008) 39.7 % LYMPHOCYTES (test code = 1010) 44.8 % MONOCYTES (test code = 1011) 10.2 % EOSINOPHILS (test code = 1012) 4.3 % BASOPHILS (test code = 1013) 1.0 % PLATELET COUNT (test code = 1015) 379 K/UL Travis Fisher AustinLIPID [id number] 00:00:00* Test Item Value Reference Range Interpretation Comme nts CHOLESTEROL (test code = 2210) 166 MG/DL TRIGLYCERIDES (test code = 2232) 51 MG/DL HDL CHOLESTEROL (test code = 2220) 76 MG/DL CALC LDL CHOL (test code = 2237) 80 MG/DL RISK RATIO LDL/HDL (test cod e = 2238) 1.05 RATIO Travis ChampagneCBC W/AUTO [id number] 00:00:00* Test Item Value Reference Range Interpretation Comme nts WBC (test code = 1001) 5.1 K/UL RBC (test code = 1002) 3.91 M/UL HEMOGLOBIN (test code = 1003) 10.6 G/DL HEMATOCRIT (test code = 1004) 33.1 % MCV (test code = 1005) 84.7 fL MCH (test code = 1006) 27.1 PG MCHC (test code = 1007) 32.0 G/DL RDW (test code = 1038) 15.3 % NEUTROPHILS (test code = 1008) 39.7 % LYMPHOCYTES (test code = 1010) 44.8 % MONOCYTES (test code = 1011) 10.2 % EOSINOPHILS (test code = 1012) 4.3 % BASOPHILS (test code = 1013) 1.0 % PLATELET COUNT (test code = 1015) 379 K/UL Travis [id number] 00:00:00* Test Item Value Reference Range Interpretation Comme nts TSH, THIRD GENERATION (test code = 2821) 0.770 UIU/ML Travis ChampagneCOMPREHENSIVE METABOLIC [id number] 00:00:00* Test Item Value Reference Range Interpretation Comme nts GLUCOSE (test code = 2217) 89 MG/DL BUN (test code = 2208) 13 MG/DL CREATININE (test code = 2214) 0.75 MG/DL eGFR AMER. (test cod e = 44438) 109 ML/MIN/1.73 eGFR NON- AMER. (test code = 87944) 94 ML/MIN/1.73 CALC BUN/CREAT (test code = 2235) 17 RATIO SODIUM (test code = 2231) 142 MEQ/L POTASSIUM (test code = 2228) 4.4 MEQ/L CHLORIDE (test code = 2215) 107 MEQ/L CARBON DIOXIDE (test code = 2206) 21 MEQ/L CALCIUM (test code = 2209) 9.7 MG/DL PROTEIN, TOTAL (test code = 2229) 7.6 G/DL ALBUMIN (test code = 2201) 4.6 G/DL CALC GLOBULIN (test code = 2240) 3.0 G/DL CALC A/G RATIO (test code = 2234) 1.5 RATIO BILIRUBIN, TOTAL (test code = 2207) 0.3 MG/DL ALKALINE PHOSPHATASE (test code = 2204) 64 U/L AST (test code = 2218) 18 U/L ALT (test code = 2219) 8 U/L Travis ChampagneLIPID [id number] 00:00:00* Test Item Value Reference Range Interpretation Comme nts CHOLESTEROL (test code = 2210) 219 MG/DL TRIGLYCERIDES (test code = 2232) 90 MG/DL HDL CHOLESTEROL (test code = 2220) 68 MG/DL CALC LDL CHOL (test code = 2237) 133 MG/DL RISK RATIO LDL/HDL (test cod e = 2238) 1.96 RATIO Travis ChampagneCBC W/AUTO [id number] 00:00:00* Test Item Value Reference Range Interpretation Comme nts WBC (test code = 1001) 6.0 K/UL RBC (test code = 1002) 4.22 M/UL HEMOGLOBIN (test code = 1003) 11.0 G/DL HEMATOCRIT (test code = 1004) 34.5 % MCV (test code = 1005) 81.8 fL MCH (test code = 1006) 26.1 PG MCHC (test code = 1007) 31.9 G/DL RDW (test code = 1038) 15.4 % NEUTROPHILS (test code = 1008) 45.5 % LYMPHOCYTES (test code = 1010) 43.8 % MONOCYTES (test code = 1011) 7.7 % EOSINOPHILS (test code = 1012) 1.8 % BASOPHILS (test code = 1013) 1.2 % PLATELET COUNT (test code = 1015) 369 K/UL Travis ChampagneHEMOGLOBIN [id number] 00:00:00* Test Item Value Reference Range Interpretation Comme kwame HEMOGLOBIN A1c (test code = 19286) 5.3 % Travis [id number] 00:00:00* Test Item Value Reference Range Interpretation Comme kwame TSH, THIRD GENERATION (test code = 2821) 0.770 UIU/ML Travis ChampagneCOMPREHENSIVE METABOLIC [id number] 00:00:00* Test Item Value Reference Range Interpretation Comme nts GLUCOSE (test code = 2217) 89 MG/DL BUN (test code = 2208) 13 MG/DL CREATININE (test code = 2214) 0.75 MG/DL eGFR AMER. (test cod e = ) 109 ML/MIN/1.73 eGFR NON- AMER. (test code = 52104) 94 ML/MIN/1.73 CALC BUN/CREAT (test code = 2235) 17 RATIO SODIUM (test code = 2231) 142 MEQ/L POTASSIUM (test code = 2228) 4.4 MEQ/L CHLORIDE (test code = 2215) 107 MEQ/L CARBON DIOXIDE (test code = 2206) 21 MEQ/L CALCIUM (test code = 2209) 9.7 MG/DL PROTEIN, TOTAL (test code = 222) 7.6 G/DL ALBUMIN (test code = 2201) 4.6 G/DL CALC GLOBULIN (test code = 2240) 3.0 G/DL CALC A/G RATIO (test code = 2234) 1.5 RATIO BILIRUBIN, TOTAL (test code = 2207) 0.3 MG/DL ALKALINE PHOSPHATASE (test code = 2204) 64 U/L AST (test code = 2218) 18 U/L ALT (test code = 2219) 8 U/L Travis ChampagneLIPID [id number] 00:00:00* Test Item Value Reference Range Interpretation Comme nts CHOLESTEROL (test code = 2210) 219 MG/DL TRIGLYCERIDES (test code = 2232) 90 MG/DL HDL CHOLESTEROL (test code = 2220) 68 MG/DL CALC LDL CHOL (test code = 2237) 133 MG/DL RISK RATIO LDL/HDL (test cod e = 2238) 1.96 RATIO Travis ChapmagneCBC W/AUTO [id number] 00:00:00* Test Item Value Reference Range Interpretation Comme nts WBC (test code = 1001) 6.0 K/UL RBC (test code = 1002) 4.22 M/UL HEMOGLOBIN (test code = 1003) 11.0 G/DL HEMATOCRIT (test code = 1004) 34.5 % MCV (test code = 1005) 81.8 fL MCH (test code = 1006) 26.1 PG MCHC (test code = 1007) 31.9 G/DL RDW (test code = 1038) 15.4 % NEUTROPHILS (test code = 1008) 45.5 % LYMPHOCYTES (test code = 1010) 43.8 % MONOCYTES (test code = 1011) 7.7 % EOSINOPHILS (test code = 1012) 1.8 % BASOPHILS (test code = 1013) 1.2 % PLATELET COUNT (test code = 1015) 369 K/UL Travis ChampagneHEMOGLOBIN [id number] 00:00:00* Test Item Value Reference Range Interpretation Comme nts HEMOGLOBIN A1c (test code = 97927) 5.3 % Travis [id number] 00:00:00* Test Item Value Reference Range Interpretation Comme nts TSH, THIRD GENERATION (test code = 2821) 0.770 UIU/ML Travis ChampagneCOMPREHENSIVE METABOLIC [id number] 00:00:00* Test Item Value Reference Range Interpretation Comme nts GLUCOSE (test code = 2217) 89 MG/DL BUN (test code = 2208) 13 MG/DL CREATININE (test code = 2214) 0.75 MG/DL eGFR AMER. (test cod e = 03031) 109 ML/MIN/1.73 eGFR NON- AMER. (test code = 60899) 94 ML/MIN/1.73 CALC BUN/CREAT (test code = 2235) 17 RATIO SODIUM (test code = 2231) 142 MEQ/L POTASSIUM (test code = 2228) 4.4 MEQ/L CHLORIDE (test code = 2215) 107 MEQ/L CARBON DIOXIDE (test code = 2206) 21 MEQ/L CALCIUM (test code = 2209) 9.7 MG/DL PROTEIN, TOTAL (test code = 2229) 7.6 G/DL ALBUMIN (test code = 2201) 4.6 G/DL CALC GLOBULIN (test code = 2240) 3.0 G/DL CALC A/G RATIO (test code = 2234) 1.5 RATIO BILIRUBIN, TOTAL (test code = 2207) 0.3 MG/DL ALKALINE PHOSPHATASE (test code = 2204) 64 U/L AST (test code = 2218) 18 U/L ALT (test code = 2219) 8 U/L Travis ChampagneLIPID [id number] 00:00:00* Test Item Value Reference Range Interpretation Comme nts CHOLESTEROL (test code = 2210) 219 MG/DL TRIGLYCERIDES (test code = 2232) 90 MG/DL HDL CHOLESTEROL (test code = 2220) 68 MG/DL CALC LDL CHOL (test code = 2237) 133 MG/DL RISK RATIO LDL/HDL (test cod e = 2238) 1.96 RATIO Travis ChampagneCBC W/AUTO [id number] 00:00:00* Test Item Value Reference Range Interpretation Comme nts WBC (test code = 1001) 6.0 K/UL RBC (test code = 1002) 4.22 M/UL HEMOGLOBIN (test code = 1003) 11.0 G/DL HEMATOCRIT (test code = 1004) 34.5 % MCV (test code = 1005) 81.8 fL MCH (test code = 1006) 26.1 PG MCHC (test code = 1007) 31.9 G/DL RDW (test code = 1038) 15.4 % NEUTROPHILS (test code = 1008) 45.5 % LYMPHOCYTES (test code = 1010) 43.8 % MONOCYTES (test code = 1011) 7.7 % EOSINOPHILS (test code = 1012) 1.8 % BASOPHILS (test code = 1013) 1.2 % PLATELET COUNT (test code = 1015) 369 K/UL Travis ChampagneHEMOGLOBIN [id number] 00:00:00* Test Item Value Reference Range Interpretation Comme kwame HEMOGLOBIN A1c (test code = 37032) 5.3 % Travis [id number] 00:00:00* Test Item Value Reference Range Interpretation Comme kwame TSH, THIRD GENERATION (test code = 2821) 0.770 UIU/ML Travis ChampagneCOMPREHENSIVE METABOLIC [id number] 00:00:00* Test Item Value Reference Range Interpretation Comme nts GLUCOSE (test code = 2217) 89 MG/DL BUN (test code = 2208) 13 MG/DL CREATININE (test code = 2214) 0.75 MG/DL eGFR AMER. (test cod e = 36032) 109 ML/MIN/1.73 eGFR NON- AMER. (test code = 79080) 94 ML/MIN/1.73 CALC BUN/CREAT (test code = 2235) 17 RATIO SODIUM (test code = 2231) 142 MEQ/L POTASSIUM (test code = 2228) 4.4 MEQ/L CHLORIDE (test code = 2215) 107 MEQ/L CARBON DIOXIDE (test code = 2206) 21 MEQ/L CALCIUM (test code = 2209) 9.7 MG/DL PROTEIN, TOTAL (test code = 2229) 7.6 G/DL ALBUMIN (test code = 2201) 4.6 G/DL CALC GLOBULIN (test code = 2240) 3.0 G/DL CALC A/G RATIO (test code = 2234) 1.5 RATIO BILIRUBIN, TOTAL (test code = 2207) 0.3 MG/DL ALKALINE PHOSPHATASE (test code = 2204) 64 U/L AST (test code = 2218) 18 U/L ALT (test code = 2219) 8 U/L Travis ChampagneLIPID [id number] 00:00:00* Test Item Value Reference Range Interpretation Comme nts CHOLESTEROL (test code = 2210) 219 MG/DL TRIGLYCERIDES (test code = 2232) 90 MG/DL HDL CHOLESTEROL (test code = 2220) 68 MG/DL CALC LDL CHOL (test code = 2237) 133 MG/DL RISK RATIO LDL/HDL (test cod e = 2238) 1.96 RATIO Travis Fisher IhsanCBC W/AUTO [id number] 00:00:00* Test Item Value Reference Range Interpretation Comme nts WBC (test code = 1001) 6.0 K/UL RBC (test code = 1002) 4.22 M/UL HEMOGLOBIN (test code = 1003) 11.0 G/DL HEMATOCRIT (test code = 1004) 34.5 % MCV (test code = 1005) 81.8 fL MCH (test code = 1006) 26.1 PG MCHC (test code = 1007) 31.9 G/DL RDW (test code = 1038) 15.4 % NEUTROPHILS (test code = 1008) 45.5 % LYMPHOCYTES (test code = 1010) 43.8 % MONOCYTES (test code = 1011) 7.7 % EOSINOPHILS (test code = 1012) 1.8 % BASOPHILS (test code = 1013) 1.2 % PLATELET COUNT (test code = 1015) 369 K/UL Travis ChampagneHEMOGLOBIN [id number] 00:00:00* Test Item Value Reference Range Interpretation Comme [facility] HEMOGLOBIN A1c (test code = 13043) 5.3 % Travis ChampagneCOMPREHENSIVE METABOLIC [id number] 00:00:00* Test Item Value Reference Range Interpretation Comme nts GLUCOSE (test code = 2217) 86 MG/DL BUN (test code = 2208) 6 MG/DL CREATININE (test code = 2214) 0.72 MG/DL eGFR AMER. (test cod e = 34590) 116 ML/MIN/1.73 eGFR NON- AMER. (test code = 88355) 100 ML/MIN/1.73 CALC BUN/CREAT (test code = 2235) 8 RATIO SODIUM (test code = 2231) 141 MEQ/L POTASSIUM (test code = 2228) 4.1 MEQ/L CHLORIDE (test code = 2215) 105 MEQ/L CARBON DIOXIDE (test code = 2206) 23 MEQ/L CALCIUM (test code = 2209) 9.0 MG/DL PROTEIN, TOTAL (test code = 2229) 6.6 G/DL ALBUMIN (test code = 2201) 4.2 G/DL CALC GLOBULIN (test code = 2240) 2.4 G/DL CALC A/G RATIO (test code = 2234) 1.8 RATIO BILIRUBIN, TOTAL (test code = 2207) 0.2 MG/DL ALKALINE PHOSPHATASE (test code = 2204) 68 U/L AST (test code = 2218) 19 U/L ALT (test code = 2219) 10 U/L Travis ChampagneC W/AUTO [id number] 00:00:00* Test Item Value Reference Range Interpretation Comme nts WBC (test code = 1001) 4.7 K/UL RBC (test code = 1002) 4.14 M/UL HEMOGLOBIN (test code = 1003) 13.4 G/DL HEMATOCRIT (test code = 1004) 38.5 % MCV (test code = 1005) 93.0 fL MCH (test code = 1006) 32.4 PG MCHC (test code = 1007) 34.8 G/DL RDW (test code = 1038) 13.2 % NEUTROPHILS (test code = 1008) 29.5 % LYMPHOCYTES (test code = 1010) 58.9 % MONOCYTES (test code = 1011) 8.0 % EOSINOPHILS (test code = 1012) 1.9 % BASOPHILS (test code = 1013) 1.7 % PLATELET COUNT (test code = 1015) 290 K/UL Travis ChampagneHEMOGLOBIN [id number] 00:00:00* Test Item Value Reference Range Interpretation Comme [facility] HEMOGLOBIN A1c (test code = 45164) 5.0 % Travis ChampagneCOMPREHENSIVE METABOLIC [id number] 00:00:00* Test Item Value Reference Range Interpretation Comme nts GLUCOSE (test code = 2217) 86 MG/DL BUN (test code = 2208) 6 MG/DL CREATININE (test code = 2214) 0.72 MG/DL eGFR AMER. (test cod e = 04032) 116 ML/MIN/1.73 eGFR NON- AMER. (test code = 40096) 100 ML/MIN/1.73 CALC BUN/CREAT (test code = 2235) 8 RATIO SODIUM (test code = 2231) 141 MEQ/L POTASSIUM (test code = 2228) 4.1 MEQ/L CHLORIDE (test code = 2215) 105 MEQ/L CARBON DIOXIDE (test code = 2206) 23 MEQ/L CALCIUM (test code = 2209) 9.0 MG/DL PROTEIN, TOTAL (test code = 2229) 6.6 G/DL ALBUMIN (test code = 2201) 4.2 G/DL CALC GLOBULIN (test code = 2240) 2.4 G/DL CALC A/G RATIO (test code = 2234) 1.8 RATIO BILIRUBIN, TOTAL (test code = 2207) 0.2 MG/DL ALKALINE PHOSPHATASE (test code = 2204) 68 U/L AST (test code = 2218) 19 U/L ALT (test code = 2219) 10 U/L Travis ChampagneCBC W/AUTO [id number] 00:00:00* Test Item Value Reference Range Interpretation Comme kwame WBC (test code = 1001) 4.7 K/UL RBC (test code = 1002) 4.14 M/UL HEMOGLOBIN (test code = 1003) 13.4 G/DL HEMATOCRIT (test code = 1004) 38.5 % MCV (test code = 1005) 93.0 fL MCH (test code = 1006) 32.4 PG MCHC (test code = 1007) 34.8 G/DL RDW (test code = 1038) 13.2 % NEUTROPHILS (test code = 1008) 29.5 % LYMPHOCYTES (test code = 1010) 58.9 % MONOCYTES (test code = 1011) 8.0 % EOSINOPHILS (test code = 1012) 1.9 % BASOPHILS (test code = 1013) 1.7 % PLATELET COUNT (test code = 1015) 290 K/UL Travis ChampagneHEMOGLOBIN [id number] 00:00:00* Test Item Value Reference Range Interpretation Comme nts HEMOGLOBIN A1c (test code = 42201) 5.0 % Travis ChampagneCOMPREHENSIVE METABOLIC [id number] 00:00:00* Test Item Value Reference Range Interpretation Comme nts GLUCOSE (test code = 2217) 86 MG/DL BUN (test code = 2208) 6 MG/DL CREATININE (test code = 2214) 0.72 MG/DL eGFR AMER. (test cod e = 41349) 116 ML/MIN/1.73 eGFR NON- AMER. (test code = 24989) 100 ML/MIN/1.73 CALC BUN/CREAT (test code = 2235) 8 RATIO SODIUM (test code = 2231) 141 MEQ/L POTASSIUM (test code = 2228) 4.1 MEQ/L CHLORIDE (test code = 2215) 105 MEQ/L CARBON DIOXIDE (test code = 2206) 23 MEQ/L CALCIUM (test code = 2209) 9.0 MG/DL PROTEIN, TOTAL (test code = 2229) 6.6 G/DL ALBUMIN (test code = 2201) 4.2 G/DL CALC GLOBULIN (test code = 2240) 2.4 G/DL CALC A/G RATIO (test code = 2234) 1.8 RATIO BILIRUBIN, TOTAL (test code = 2207) 0.2 MG/DL ALKALINE PHOSPHATASE (test code = 2204) 68 U/L AST (test code = 2218) 19 U/L ALT (test code = 2219) 10 U/L Travis ChampagneCBC W/AUTO [id number] 00:00:00* Test Item Value Reference Range Interpretation Comme nts WBC (test code = 1001) 4.7 K/UL RBC (test code = 1002) 4.14 M/UL HEMOGLOBIN (test code = 1003) 13.4 G/DL HEMATOCRIT (test code = 1004) 38.5 % MCV (test code = 1005) 93.0 fL MCH (test code = 1006) 32.4 PG MCHC (test code = 1007) 34.8 G/DL RDW (test code = 1038) 13.2 % NEUTROPHILS (test code = 1008) 29.5 % LYMPHOCYTES (test code = 1010) 58.9 % MONOCYTES (test code = 1011) 8.0 % EOSINOPHILS (test code = 1012) 1.9 % BASOPHILS (test code = 1013) 1.7 % PLATELET COUNT (test code = 1015) 290 K/UL Travis ChampagneHEMOGLOBIN [id number] 00:00:00* Test Item Value Reference Range Interpretation Comme nts HEMOGLOBIN A1c (test code = 80152) 5.0 % Travis ChampagneCOMPREHENSIVE METABOLIC [id number] 00:00:00* Test Item Value Reference Range Interpretation Comme nts GLUCOSE (test code = 2217) 86 MG/DL BUN (test code = 2208) 6 MG/DL CREATININE (test code = 2214) 0.72 MG/DL eGFR AMER. (test cod e = 00581) 116 ML/MIN/1.73 eGFR NON- AMER. (test code = 86366) 100 ML/MIN/1.73 CALC BUN/CREAT (test code = 2235) 8 RATIO SODIUM (test code = 2231) 141 MEQ/L POTASSIUM (test code = 2228) 4.1 MEQ/L CHLORIDE (test code = 2215) 105 MEQ/L CARBON DIOXIDE (test code = 2206) 23 MEQ/L CALCIUM (test code = 2209) 9.0 MG/DL PROTEIN, TOTAL (test code = 2229) 6.6 G/DL ALBUMIN (test code = 2201) 4.2 G/DL CALC GLOBULIN (test code = 2240) 2.4 G/DL CALC A/G RATIO (test code = 2234) 1.8 RATIO BILIRUBIN, TOTAL (test code = 2207) 0.2 MG/DL ALKALINE PHOSPHATASE (test code = 2204) 68 U/L AST (test code = 2218) 19 U/L ALT (test code = 2219) 10 U/L Travis Fisher IhsanCBC W/AUTO [id number] 00:00:00* Test Item Value Reference Range Interpretation Comme nts WBC (test code = 1001) 4.7 K/UL RBC (test code = 1002) 4.14 M/UL HEMOGLOBIN (test code = 1003) 13.4 G/DL HEMATOCRIT (test code = 1004) 38.5 % MCV (test code = 1005) 93.0 fL MCH (test code = 1006) 32.4 PG MCHC (test code = 1007) 34.8 G/DL RDW (test code = 1038) 13.2 % NEUTROPHILS (test code = 1008) 29.5 % LYMPHOCYTES (test code = 1010) 58.9 % MONOCYTES (test code = 1011) 8.0 % EOSINOPHILS (test code = 1012) 1.9 % BASOPHILS (test code = 1013) 1.7 % PLATELET COUNT (test code = 1015) 290 K/UL Travis F IhsanHEMOGLOBIN [id number] 00:00:00* Test Item Value Reference Range Interpretation Comme nts HEMOGLOBIN A1c (test code = 17177) 5.0 % Travis Champagne Notes Date/Time Note Provider Source Travis Nieves [facility]2025-02-12 00:00:00 Travis Nieves [facility]2024-09-19 00:00:00 Travis Nieves [facility]2024-09-05 00:00:00 Travis Rian [facility]
--- NOTE | 2024-10-07 11:32 | RAD REPORT ---
EXAM: Knee Left 3 View INDICATION: PAIN COMPARISON: None FINDINGS: No acute fracture. No significant knee effusion. Tricompartmental degenerative changes which are mild. There is mild medial compartment narrowing and spurring. Mild patellofemoral compartment spurring. Slight lateral compartment narrowing and spurring. Other: N/A IMPRESSION: No acute osseous abnormality involving the imaged knee.
--- NOTE | 2024-10-07 11:33 | RAD REPORT ---
EXAMINATION: Tib Fib Left VIEWS: Two views CLINICAL INDICATION: Female, 54 years old. PAIN COMPARISON: No prior exam. IMPRESSION: No acute fracture. Limited lateral view of the tibia/fibular with ankle excluded from [id number] h owever this area was imaged on the dedicated ankle radiograph. No acute soft tissue abnormality.
--- NOTE | 2024-10-07 11:34 | RAD REPORT ---
EXAMINATION: Ankle Left 3 View CLINICAL INDICATION: Female, 54 years old. PAIN COMPARISON: No prior exam. FINDINGS: No acute fracture. No malalignment/dislocation. Plantar aspect calcaneal spurs. Other: n/a IMPRESSION: No acute osseous abnormality.
--- NOTE | 2024-10-07 11:46 | EDPHYS ---
Physician Documentation [facility] Name: Maci Last Age: 54 yrs Sex: Female : 1970 Arrival Date: 10/07/2024 Time: 10:34 Bed 14 Private MD: ED Physician Lucho Rodríguez HPI: 10/07 11:05 This 54 yrs old Black Female presents to ER via Wheelchair with complaints of Leg Pain rn - left. 11:05 The patient presents with decreased range of motion, an injury, pain. The complaints rn affect the left knee and anterior aspect of left ankle. 11:06 Onset: The symptoms/episode began/occurred 2 week(s) ago. Modifying factors: The rn symptoms are alleviated by nothing. the symptoms are aggravated by weight bearing, bending knee. Severity of symptoms: At their worst the symptoms were moderate, in the emergency department the symptoms have improved. The patient has not experienced similar symptoms in the past. Patient reports was at work 2 weeks ago, her left leg gave out, has had left knee and left ankle pain since then. Able to ambulate with a knee brace. Seen by PCP who has ordered an MRI but patient has not obtained MRI yet. No acute change, still having pain so came in for evaluation. PCP did not order x-rays. Denies any weakness or numbness. No pain of the hip or thigh. Patient reports mainly pain to the knee and arrives in a knee brace. Also reports very mild pain to the lateral left ankle and is not wearing a brace of the ankle.. Historical: - Allergies: 10:55 No Known Allergies; iw - PMHx: 10:55 Hypercholesterolemia; Hypertensive disorder; iw - PSHx: 10:55 Ligation of fallopian tube; iw - Immunization history:: Adult Immunizations not up to date. - Infectious Disease History:: Denies. - Social history:: Smoking status: Patient reports the use of cigarette tobacco products, smokes one-half pack cigarettes per day. - Family history:: not pertinent. - Hospitalizations: : No recent hospitalization is reported. ROS: 11:06 Constitutional: Negative for fever, chills, and weight loss, MS/Extremity: + injury and rn pain Skin: Negative for injury, rash, and discoloration, Neuro: Negative for weakness, numbness, tingling Exam: 11:06 Constitutional: This is a well developed, well nourished patient who is awake, alert, rn and in no acute distress. MS/ Extremity: Pulses equal, no cyanosis. Neurovascular intact. No focal bony tenderness of the knee or the ankle. Mild swelling of the knee noted and patient wearing knee brace. No discoloration noted when knee brace removed. Mild tenderness posterior left knee. Otherwise no gross deformity. Strength and sensation intact. No calf tenderness or Achilles tenderness. Vital Signs: 10:53 BP 122 / 60; Pulse 101; Resp 19; Temp 98.1; Pulse Ox 99% on R/A; Weight 117.93 kg; iw Height 5 ft. 3 in. ; Pain 7/10; 12:27 BP 118 / 72; Pulse 89; Resp 18; Temp 98.9; Pulse Ox 99% on R/A; ph 10:53 Body Mass Index 46.06 (117.93 kg, 160.02 cm) iw 10:53 Pain Scale: Adult iw MDM: 10:41 Medical Screening Exam initiated rn 11:41 Differential diagnosis: closed fracture, Ligamentous injury, meniscus injury. Data rn reviewed: vital signs, nurses notes, radiologic studies, plain films, and as a result, I will discharge patient. Counseling: I had a detailed discussion with the patient and/or guardian regarding the historical points, exam findings, and any diagnostic results supporting the discharge/admit diagnosis, radiology results, the need for outpatient follow up, to return to the emergency department if symptoms worsen or persist or if there are any questions or concerns that arise at home. Special discussion: I discussed with the patient/guardian in detail that at this point there is no indication for admission to the hospital. It is understood, however, that if the symptoms persist or worsen the patient needs to return immediately for re-evaluation. Further emergent ED testing is not indicated at this point in time. I discussed with the patient/guardian in detail the need to arrange with the PCP or specialist further outpatient testing, MRI, Based on the history and exam findings, there is no indication for further emergent testing or inpatient evaluation. I discussed with the patient/guardian the need to see the orthopedic surgeon for further evaluation of the symptoms. 10/07 10:54 Order name: XRAY Knee LEFT 3 view; Complete Time: 11:36 rn 10/07 10:54 Order name: XRAY Tib Fib LEFT; Complete Time: 11:36 rn 10/07 10:54 Order name: XRAY Ankle LEFT 3 view; Complete Time: 11:36 rn 10/07 11:40 Order name: Knee Immobilizer; Complete Time: 12:27 rn Administered Medications: No medications were administered Disposition Summary: 10/07/24 11:45 Discharge Ordered Notes: Location: Home rn Problem: an ongoing problem rn Symptoms: have improved rn Condition: Stable rn Diagnosis - Sprain of unspecified site of left knee, initial encounter rn - Unspecified internal derangement of left knee rn Followup: rn - With: Ramon Martínez MD - When: As needed - Reason: Recheck today's complaints, Re-evaluation by your physician Discharge Instructions: - Discharge Summary Sheet rn - How to Use a Knee Immobilizer rn - Knee Sprain, Adult rn Forms: - Medication Reconciliation Form rn - Antibiotic academic intern - Prescription Opioid Use rn - Patient Portal Instructions rn - Leadership Thank You Letter rn - Work release form ph Signatures: Dispatcher [employer] Brittaney Jaquez RN RN iw Nieto, Roman, MD MD mergers and acquisitions attorney: (The following items were deleted from the chart) 11:08 11:06 Constitutional: This is a well developed, well nourished patient who is awake, rn alert, and in no acute distress. MS/ Extremity: Pulses equal, no cyanosis. Neurovascular intact. No focal bony tenderness of the knee or the ankle. Mild swelling of the knee noted and patient wearing knee brace. No discoloration noted when knee brace removed. Mild tenderness posterior left knee. Otherwise no gross deformity. Strength and sensation intact. rn
--- NOTE | 2024-10-07 11:46 | ER ---
Nurse's Notes [facility] Name: Maci Last Age: 54 yrs Sex: Female : 1970 Arrival Date: 10/07/2024 Time: 10:34 Bed 14 Private MD: Diagnosis: Sprain of unspecified site of left knee, initial encounter;Unspecified internal derangement of left knee Presentation: 10/07 10:53 Chief complaint: Patient states: was at work and her left knee gave out on her, she iw felt a pop, she initially injured it on the and was seen at [facility] and given medications, they were supposed to order an MRI but it hasn't got approved yet. Coronavirus screen: At this time, the client does not indicate any symptoms associated with coronavirus-19. Ebola Screen: No symptoms or risks identified at this time. Initial Sepsis Screen: Does the patient meet any 2 criteria? No. Patient's initial sepsis screen is negative. Does the patient have a suspected source of infection? No. Patient's initial sepsis screen is negative. Risk Assessment: Do you want to hurt yourself or someone else? Patient reports no desire to harm self or others. Onset of symptoms was October 07, 2024. 10:53 Method Of Arrival: Wheelchair iw 10:53 Acuity: JESUS 4 iw Historical: - Allergies: 10:55 No Known Allergies; iw - PMHx: 10:55 Hypercholesterolemia; Hypertensive disorder; iw - PSHx: 10:55 Ligation of fallopian tube; iw - Immunization history:: Adult Immunizations not up to date. - Infectious Disease History:: Denies. - Social history:: Smoking status: Patient reports the use of cigarette tobacco products, smokes one-half pack cigarettes per day. - Family history:: not pertinent. - Hospitalizations: : No recent hospitalization is reported. Screenin:58 [facility] ED Fall Risk Assessment (Adult) History of falling in the last 3 months, ph including since admission No falls in past 3 months (0 pts) Confusion or Disorientation No (0 pts) Intoxicated or Sedated No (0 pts) Impaired Gait No (0 pts) Mobility Assist Device Used No (0 pt) Altered Elimination No (0 pt) Score/Fall Risk Level 0 - 2 = Low Risk Oriented to surroundings, Maintained a safe environment, Hourly rounding (assess needs \T\ fall precautionary measures) done. Abuse screen: Denies threats or abuse. Denies injuries from another. Nutritional screening: No deficits noted. Tuberculosis screening: No symptoms or risk factors identified. Assessment: 11:36 General: Appears in no apparent distress. Behavior is calm, cooperative. Pain: ph Complains of pain in left knee. Neuro: Level of Consciousness is awake, alert, obeys commands, Oriented to person, place, time, situation. Cardiovascular: Capillary refill < 3 seconds in bilateral fingers Patient's skin is warm and dry. Respiratory: Airway is patent Respiratory effort is even, unlabored, Respiratory pattern is regular, symmetrical. Derm: Skin is pink, warm \T\ dry. 12:27 Reassessment: Patient appears in no apparent distress at this time. Patient and/or ph family updated on plan of care and expected duration. Pain level reassessed. Patient is alert, oriented x 3, equal unlabored respirations, skin warm/dry/pink. Vital Signs: 10:53 BP 122 / 60; Pulse 101; Resp 19; Temp 98.1; Pulse Ox 99% on R/A; Weight 117.93 kg; iw Height 5 ft. 3 in. ; Pain 7/10; 12:27 BP 118 / 72; Pulse 89; Resp 18; Temp 98.9; Pulse Ox 99% on R/A; ph 10:53 Body Mass Index 46.06 (117.93 kg, 160.02 cm) iw 10:53 Pain Scale: Adult iw ED Course: 10:39 Patient arrived in ED. im 10:41 Lucho Rodríguez MD is Attending Physician. rn 10:47 Love Marrero RN is Primary Nurse. ph 10:55 Triage completed. iw 10:55 Arm band placed on. iw 11:12 XRAY Knee LEFT 3 view In Process Unspecified. EDMS 11:12 XRAY Tib Fib LEFT In Process Unspecified. EDMS 11:12 XRAY Ankle LEFT 3 view In Process Unspecified. EDMS 11:36 Patient has correct armband on for positive identification. Placed in gown. Bed in low ph position. Call light in reach. Side rails up X 1. Pulse ox on. NIBP on. Door closed. Noise minimized. 11:41 Ramon Martínez MD is Referral Physician. rn 12:06 No provider procedures requiring assistance completed. Patient did not have IV access ph during this emergency room visit. 12:28 Knee immobilizer applied on left knee. ph Administered Medications: No medications were administered Medication: 11:36 VIS not applicable for this client. ph Outcome: 11:45 Discharge ordered by . rn 12:28 Discharged to home ambulatory, with significant other, ph 12:28 Condition: good 12:28 Discharge instructions given to patient, significant other, Instructed on discharge instructions, follow up and referral plans. Demonstrated understanding of instructions, follow-up care, 12:28 Patient left the ED. ph Signatures: Dispatcher [employer] EDMS Brittaney Peoples, Lucho Ann RN, MD MD rn Hall, Patricia, RN RN ph Mendoza, Itzel im
[2024-10-09 17:01] VITALS: O2SAT 99
[2024-10-09 17:02] VITALS: BP 118/72; TEMP 98.9
== END 2024-10-07 12:28 | disposition home or self-care (01) ==
LOC: ER 10:34
DX: S83.92XA Sprain of unspecified site of left knee, initial encounter (principal); M23.92 Unspecified internal derangement of left knee; F17.210 Nicotine dependence, cigarettes, uncomplicated
CPT/HCPCS: 99283